=== PATIENT | female | born 1975 ===

== ENCOUNTER 2025-07-13 12:00 | Inpatient (IN) | payer OTHER ==
[~2025-07-13] VITALS: Ht 165.1 cm; Wt 68.0 kg
[2025-07-16] MEDS ORDERED: ANASTROZOLE1 MG PO (14:11)
[2025-07-16 14:12] VITALS: BP 109/73
[2025-07-16] MEDS ORDERED: VENLAFAXINE H37.5 M2 PO (14:12)
[2025-07-19] MEDS ORDERED: CEFAZOLIN SODIUM 1,000 MG VIAL ONE (11:18)
[2025-07-19] MEDS ORDERED: METRONIDAZOLE/SODIUM CHLORIDE 500 MG/100 ML PIGGYBACK IV ONE (11:18)
[2025-07-19] MEDS ORDERED: BUPIVACAINE HCL/MPF 0.5% 30ML VIAL ONE (12:38)
[2025-07-19] MEDS ORDERED: POVIDONE-IODINE 118 ML BOTT TOP ONE (12:38)
[2025-07-19] MEDS ORDERED: LIDOCAINE HCL 1%/EPINEPHRINE 20ML VIAL IJ ONE (12:38)
[2025-07-19] MEDS ORDERED: SURGIFLO APPLICATOR 1 EACH APPL TOP ONE (15:41)
[2025-07-19] MEDS ORDERED: HEMOSTATIC MATRIX 1 KIT KIT TOP ONE (15:41)
[2025-07-19] MEDS ORDERED: MORPHINE SULFATE 4 MG/ML CARTRIDGE IV PRN (16:45)
[2025-07-19] MEDS ORDERED: KETOROLAC TROMETHAMINE 30 MG VIAL IV NR (16:45)
[2025-07-19] MEDS ORDERED: RINGERS SOLUTION,LACTATED 1,000 ML IV SCH (16:45)
[2025-07-19] MEDS ORDERED: KETOROLAC TROMETHAMINE 30 MG VIAL IV SCH (17:00)
[2025-07-19] MEDS ORDERED: METOCLOPRAMIDE HCL 5 MG/ML VIAL IV SCH (17:00)
[2025-07-19] MEDS ORDERED: SIMETHICONE 125 MG CAPSULE PO SCH (17:00)
[2025-07-19] MEDS ORDERED: CEFAZOLIN SODIUM 1,000 MG VIAL IV SCH (17:00)
[2025-07-19] MEDS ORDERED: ACETAMINOPHEN 500 MG GEL..CAP PO SCH (18:00)
[2025-07-19] MEDS ORDERED: KETOROLAC TROMETHAMINE 30 MG VIAL ONE (18:31)
[2025-07-19 19:09] LABS: BASO % 0.3 % (0.1-1.2); EOS # 0.04 (0.04-0.54); EOS % 0.4 % (0.7-7.0); LYMPH # 0.68 (1.18-3.74); LYMPH % 7.3 % (19.3-53.1); MEAN PLATELET VOLUME 11.30 fl (9.4-12.4); MONO # 0.56 (0.24-0.82); MONO % 6.0 % (4.7-12.5); NEUT # 8.01 (1.56-6.13); NEUT % 85.8 % (34.0-71.1); RED CELL DISTRIBUTION WIDTH 12.9 % (11.6-14.4)
[2025-07-19 19:35] LABS: BUN CREA RATIO 12.0 (7.0-25.0); CREATININE SERUM 0.68 mg/dL (0.55-1.02); GFR 92.35; GLUCOSE FASTING 109.0 mg/dL (65-100); OSMOLALITY SERUM 286.0 MOSM/KG (275-295)
[2025-07-19] MEDS ORDERED: FAMOTIDINE/PF 20 MG/2 ML VIAL IV PUSH SCH (21:00)
[2025-07-19] MEDS ORDERED: GABAPENTIN 300 MG CAPSULE PO SCH (21:00)
[2025-07-19] MEDS ORDERED: DOCUSATE SODIUM 100MG CAP PO SCH (21:00)
[2025-07-20 01:04] VITALS: BP 105/60; O2SAT 97
[2025-07-20 06:32] LABS: BASO % 0.4 % (0.1-1.2); EOS # 0.06 (0.04-0.54); EOS % 0.9 % (0.7-7.0); LYMPH # 1.08 (1.18-3.74); LYMPH % 15.7 % (19.3-53.1); MEAN PLATELET VOLUME 10.30 fl (9.4-12.4); MONO # 0.63 (0.24-0.82); MONO % 9.1 % (4.7-12.5); NEUT # 5.08 (1.56-6.13); NEUT % 73.8 % (34.0-71.1); RED CELL DISTRIBUTION WIDTH 12.5 % (11.6-14.4)
[2025-07-20 06:53] LABS: BUN CREA RATIO 13.0 (7.0-25.0); CREATININE SERUM 0.62 mg/dL (0.55-1.02); GFR 102.74; GLUCOSE FASTING 100.0 mg/dL (65-100); OSMOLALITY SERUM 285.0 MOSM/KG (275-295)
[2025-07-20 07:49] VITALS: BP 99/64; O2SAT 98
[2025-07-20] MEDS ORDERED: ENOXAPARIN SODIUM 40 MG/0.4 ML SYRINGE SUBCUTANEO SCH (09:00)
== END 2025-07-20 14:10 | disposition home or self-care (01) | DRG 743 ==
LOC: SURH 07-19 09:30 → O/R 07-19 11:00 → SURH 07-19 11:30 → EDBD 07-19 11:30 → SURH 07-19 17:45
PROVIDERS: ADMIT Obstetrics & Gynecology; ATTEND Obstetrics & Gynecology
PROC: 0UT74ZZ Resection of Bilateral Fallopian Tubes, Percutaneous Endoscopic Approach (ICD-10-PCS; 2025-07-19)
PROC: 0UT24ZZ Resection of Bilateral Ovaries, Percutaneous Endoscopic Approach (ICD-10-PCS; 2025-07-19)
PROC: 0USG4ZZ Reposition Vagina, Percutaneous Endoscopic Approach (ICD-10-PCS; 2025-07-19)
PROC: 0UT94ZZ Resection of Uterus, Percutaneous Endoscopic Approach (ICD-10-PCS; principal; 2025-07-19 09:30)
DX: D25.1 Intramural leiomyoma of uterus (principal); N80.03 Adenomyosis of the uterus; N93.9 Abnormal uterine and vaginal bleeding, unspecified